=== PATIENT | female | born 1950 | race Two or more races ===

== ENCOUNTER 2024-01-02 17:18 | Emergency (ER) | payer OTHER ==
[~2024-01-02] VITALS: Ht 162.6 cm; Wt 82.0 kg
[2024-01-02 19:04] VITALS: TEMP 97.8; O2SAT 94
[2024-01-02 19:07] VITALS: BP 123/71; PULSE 109; RESP 16
[2024-01-02] MEDS: HYDROmorphone HCL 2 MG/ML VL/or syr IM ONE (19:07)
== END 2024-01-02 20:23 | disposition home or self-care (01) ==
LOC: ER 17:18
DX: S52.612A Displaced fracture of left ulna styloid process, initial encounter for closed fracture (principal); S52.592A Other fractures of lower end of left radius, initial encounter for closed fracture; G89.29 Other chronic pain; W01.0XXA Fall on same level from slipping, tripping and stumbling without subsequent striking against object, initial encounter; Y93.89 Activity, other specified; Y92.89 Other specified places as the place of occurrence of the external cause; Y99.8 Other external cause status
CPT/HCPCS: 29125; 73090; 73110; 96372; 99284; J1171

== ENCOUNTER 2024-01-06 10:36 | Emergency (ER) | payer OTHER ==
[~2024-01-06] VITALS: Ht 165.1 cm; Wt 78.0 kg
[2024-01-06] MEDS ORDERED: IBUP1TAB5 PO (11:47)
[2024-01-06 11:51] VITALS: BP 132/74; PULSE 94; RESP 18; TEMP 98.9; O2SAT 99
== END 2024-01-06 12:08 | disposition home or self-care (01) ==
LOC: ER 10:36
DX: S42.402A Unspecified fracture of lower end of left humerus, initial encounter for closed fracture (principal); Z79.899 Other long term (current) drug therapy; X58.XXXA Exposure to other specified factors, initial encounter; Y93.89 Activity, other specified; Y92.89 Other specified places as the place of occurrence of the external cause; Y99.8 Other external cause status
CPT/HCPCS: 29125; 73110

== ENCOUNTER → 2024-01-19 | Outpatient (CLI) | payer OTHER ==
[~2024-01-19] MED LIST: IBUP1TAB5 PO
[2024-01-19 12:07] LABS: Albumin 4.3 g/dL (3.2-4.8); Alkaline Phosphatase 92 U/L (46-116); Anion Gap 7 (5-15); Aspartate Aminotransferase 13 U/L (13-40); BUN/Creatinine Ratio 9.4 (10.0-20.0); Blood Urea Nitrogen 6 mg/dL (9-23); Calcium 9.6 mg/dL (8.7-10.4); Carbon Dioxide 30 mmol/L (20-31); Chloride 106 mmol/L (98-107); Glucose 101 mg/dL (74-106); LDL Cholesterol 55 mg/dL (< 100); Potassium 3.6 mmol/L (3.5-5.1); Sodium 143 mmol/L (136-145); Triglycerides 67 mg/dL (< 150)
[2024-01-19 12:08] LABS: Bilirubin, Total 1.2 mg/dL (0.2-1.0); Cholesterol 125 mg/dL (< 200); HDL Cholesterol 55 mg/dL (40-59); Total Protein 6.6 g/dL (5.7-8.2)
[2024-01-19 12:10] LABS: Alanine Aminotransferase < 9 U/L (7-40)
[2024-01-19 12:31] LABS: Basophils # (auto) 0 10 ^3/uL (0-0.2); Basophils % (auto) 0.4 % (0.0-2.0); Eosinophils # (auto) 0.2 10 ^3/uL (0-0.8); Eosinophils % (auto) 2.9 % (0.0-7.0); Hematocrit 37.1 % (36.0-46.0); Hemoglobin 12.4 g/dL (12.2-16.2); Lymphocytes # (auto) 1.2 10 ^3/uL (0.4-5.4); Lymphocytes % (auto) 19.3 % (10.0-50.0); Mean Corpuscular Hemoglobin 27.6 pg (28.0-32.0); Mean Corpuscular Hgb Conc. 33.4 g/dL (32.0-36.0); Mean Corpuscular Volume 82.6 fL (80.0-100.0); Monocytes # (auto) 0.5 10 ^3/uL (0-1.3); Monocytes % (auto) 8.4 % (0.0-12.0); Neutrophils # (auto) 4.4 10 ^3/uL (1.6-8.6); Platelet Count (auto) 322 10^3/uL (140-450); Red Blood Cells 4.49 10^6/uL (4.0-5.20); Red Cell Distribution Width 16.3 % (11.8-14.3); White Blood Cell 6.4 10^3/uL (4.4-10.8)
== END | disposition home or self-care (01) ==
LOC: LAB 10:52
PROVIDERS: ATTEND Nurse Practitioner Family
DX: I10 Essential (primary) hypertension (principal); Z00.01 Encounter for general adult medical examination with abnormal findings
CPT/HCPCS: 36415; 80053; 80061; 84443; 85025

== ENCOUNTER 2025-03-13 16:11 | Emergency (ER) | payer OTHER ==
[~2025-03-13] VITALS: Ht 165.1 cm; Wt 78.5 kg
[2025-03-13] MEDS: ACETAMINOPHEN 500 MG TAB or CAP PO ONE (16:45)
[2025-03-13] MEDS: FAMOTIDINE (10MG/ML) 2ML VL IV ONE (16:45)
[2025-03-13] MEDS: ONDANSETRON HCL 4 MG/2 ML VIAL IV ONE (16:45)
--- NOTE | 2025-03-13 16:46 | ED.PDOC ---
Hermelinda. trauma (HPI) HPI Comments This is a 74 year old female presenting to the ED with chief complaint of fall injuries. Patient reports that she had been tripped over by her dog running past her at home a few days ago, causing her to fall onto the ground face first. Patient relays that she is now experiencing bruising to her face, nose, chest, and left hand where she tried to break her fall. Patient states she is also experiencing associated nausea, vomiting, and headaches since then fall. Patient denies any LOC, numbness, weakness, tingling, chest pain, SOB, or dizziness. Chief Complaint: Fall Injury Time Seen by MD: 16:44 Primary Care Provider: SMILEY Joseph notes: Nurses Notes, Medications, Allergies Allergies: Coded Allergies: NO KNOWN ALLERGIES (Unverified , 01/02/24) Home Meds Active Scripts Ibuprofen Micronized (Ibuprofen) 600 Mg Tab, 600 MG PO TIDWMEALS for 10 Days, #30 TAB 0 Refills Prov:PAULO CARLOS NP 01/06/24 Information Source: Patient Mode of Arrival: Ambulatory Severity: Moderate Timing: Days Duration: Since onset Location: Chest, Face, (L) Hand, Nose Mechanism: Fall Associated signs and symtoms: Headache Past Medical History PAST MEDICAL HISTORY: Denies Surgical History: Denies all surgeries [employer] History: No Pertinent [employer]ANT History Family History Family History: Reviewed,noncontributory to illness, No family hx of Cancer, No family hx of DM, No family hx of Heart israel, No family hx of HTN, No family hx ofKidney israel, No family hx of Liver israel, No family hx of Lung israel, No family hx of Stroke Social History Smoker: Non-Smoker Alcohol: Denies ETOH Use Drugs: Denies Drug Use Lives In: Home Constitutional: denies: chills, diaphoresis, fatigue, fever, malaise, sweats, weakness, others EENTM: denies: blurred vision, double vision, ear bleeding, ear discharge, ear drainage, ear pain, ear ringing, eye pain, eye redness, hearing loss, mouth pain, mouth swelling, nasal discharge, nose bleeding, nose congestion, nose pain, photophobia, tearing, throat pain, throat swelling, voice changes, others Respiratory: denies: cough, hemoptysis, orthopnea, SOB at rest, shortness of breath, SOB with excertion, stridor, wheezing, others Cardiovascular: denies: chest pain, dizzy spells, diaphoresis, Dyspnea on exertion, edema, irregular heart beat, left arm pain, lightheadedness, palpitations, PND, syncope, others Gastrointestinal: reports: nausea, vomiting; denies: abdomen distended, abdominal pain, blood streaked bowels, constipated, diarrhea, dysphagia, difficulty swallowing, hematemesis, melena, poor appetite, poor fluid intake, rectal bleeding, rectal pain, others Genitourinary: denies: abnormal vagina bleeding, burning, dyspareunia, dysuria, flank pain, frequency, hematuria, incontinence, pain, , vagina discharge, urgency, others Neurological: reports: headache; denies: dizziness, fainting, left sided numbness, left sided weakness, numbness, paresthesia, pre-existing deficit, right sided numbness, right sided weakness, seizure, speech problems, tingling, tremors, weakness, others Musculoskeletal: denies: back pain, gout, joint pain, joint swelling, muscle pain, muscle stiffness, neck pain, others Integumetry: reports: bruises; denies: change in color, change in hair/nails, dryness, laceration, lesions, lumps, rash, wounds, others Allergic/Immunocompromised: denies: Difficulty Healing, Frequent Infections, Hives, Itching, others Hematologic/Lymphatic: denies: anemia, blood clots, easy bleeding, easy bruising, swollen glands, others Endocrine: denies: excessive hunger, excessive sweating, excessive thirst, excessive urination, flushing, intolerance to cold, intolerance to heat, unexplained weight gain, unexplained weight loss, others Psychiatric: denies: anxiety, bipolar disorder, depression, hopeless, panic disorder, schizophrenia, sleepless, suicidal, others All Other Systems: Reviewed and Negative Physical Exam General Appearance: No Apparent Distress, Normal HEENT: Normal ENT Inspection, Pharynx Normal, TMs Normal Neck: Full Range of Motion, Non-Tender, Normal, Normal Inspection Respiratory: Chest Non-Tender, Lungs Clear, No Accessory Muscle Use, No Respiratory Distress, Normal Breath Sounds Cardiovascular: No Edema, No JVD, No Murmur, No Gallop, Normal Peripheral Pulses, Regular Rate/Rhythm Breast Exam: Deferred Gastrointestinal: No Organomegaly, Non Tender, No Pulsatile Mass, Normal Bowel Sounds, Soft Genitalia: Deferred Pelvic: Deferred Rectal: Deferred Extremities: No calf tenderness, Normal capillary refill, Normal inspection, Normal range of motion, Non-tender, No pedal edema Musculoskeletal : Apperance: Normal Neurologic: Alert, paper box maker II-XII nml as Tested, No Motor Deficits, Normal Affect, Normal Mood, No Sensory Deficits Cerebellar Function: Normal Reflexes: Normal Skin: Bruises (Chin bruising, left dorsal hand bruising, left breast bruising, bilateral eyelid bruising), Dry, Normal Color, Warm Lymphatic: No Adenopathy Was a procedure done? Was a procedure done?: No EKG EKG : Pulse Rate (adult): 116 Comments Intraventricular conduction delay, prolonged QTC (480), TWI in III, V6 Differential Diagnosis Multiple Trauma: Closed Head Injury, Fractures, Contusion, Hematoma X-Ray, Labs, Meds, VS Vital Signs Date Time Temp Pulse Resp B/P (MAP) Pulse Ox O2 Delivery O2 Flow Rate FiO2 03/13/25 18:02 97.7 111 16 122/91 (101) 95 97.7 03/13/25 16:45 97.7 03/13/25 16:30 116 03/13/25 16:16 98.0 111 18 123/95 98 98.0 Lab Test 03/13/25 17:09 Range/Units White Blood Count 8.0 4.4-10.8 10^3/uL Red Blood Count 4.79 4.0-5.20 10^6/uL Hemoglobin 13.2 12.2-16.2 g/dL Hematocrit 38.8 36.0-46.0 % Mean Corpuscular Volume 81.0 80.0-100.0 fL Mean Corpuscular Hemoglobin 27.6 L 28.0-32.0 pg Mean Corpuscular Hemoglobin Concent 34.1 32.0-36.0 g/dL Red Cell Distribution Width 14.3 11.8-14.3 % Platelet Count 355 140-450 10^3/uL Mean Platelet Volume 7.4 6.9-10.8 fL Neutrophils (%) (Auto) 77.9 37.0-80.0 % Lymphocytes (%) (Auto) 12.7 10.0-50.0 % Monocytes (%) (Auto) 9.0 0.0-12.0 % Eosinophils (%) (Auto) 0.0 0.0-7.0 % Basophils (%) (Auto) 0.4 0.0-2.0 % Neutrophils # (Auto) 6.2 1.6-8.6 10 ^3/uL Lymphocytes # (Auto) 1.0 0.4-5.4 10 ^3/uL Monocytes # (Auto) 0.7 0-1.3 10 ^3/uL Eosinophils # (Auto) 0 0-0.8 10 ^3/uL Basophils # (Auto) 0 0-0.2 10 ^3/uL Nucleated Red Blood Cells 0.1 % Sodium Level 137 136-145 mmol/L Potassium Level 4.0 3.5-5.1 mmol/L Chloride Level 99 98-107 mmol/L Carbon Dioxide Level 28 20-31 mmol/L Anion Gap 10 5-15 Blood Urea Nitrogen 7 L 9-23 mg/dL Creatinine 0.78 0.550-1.02 mg/dL Glomerular Filtration Rate Calc 80 >90 mL/min BUN/Creatinine Ratio 9.0 L 10.0-20.0 Serum Glucose 127 H 74-106 mg/dL Calcium Level 10.4 8.7-10.4 mg/dL Total Bilirubin 0.7 0.2-1.0 mg/dL Aspartate Amino Transferase (AST) 15 13-40 U/L Alanine Aminotransferase (ALT) 9 7-40 U/L Alkaline Phosphatase 98 46-116 U/L Total Protein 7.5 5.7-8.2 g/dL Albumin 4.8 3.2-4.8 g/dL Lipase 27 12-53 U/L Current Medications Medications (Trade) Dose Ordered Sig/Ayse Route Start Time Stop Time Status Last Admin Sodium Chloride 1,000 ml @ 1,000 mls/hr Q1H ONCE IV 03/13/25 16:45 03/13/25 17:44 DC 03/13/25 18:14 Famotidine (Pepcid Injection) 20 mg ONCE ONCE IV 03/13/25 16:45 03/13/25 16:47 DC 03/13/25 16:45 Ondansetron HCl (Zofran) 4 mg ONCE ONCE IV 03/13/25 16:45 03/13/25 16:47 DC 03/13/25 16:45 Acetaminophen (Tylenol Tablet Or Capsule) 1,000 mg ONCE ONCE PO 03/13/25 16:45 03/13/25 16:47 DC 03/13/25 16:45 Time of 1ST Reevaluation: 17:43 Reevaluation 1ST: Unchanged Patient Education/Counseling: Diagnosis, Treatment Family Education/Counseling: No Family Present Departure 1 Departure Time of Disposition: 20:00 (74-year-old female presenting for evaluation of headache, nausea, vomiting, bruising throughout her face, left hand, left breast for recent fall. Patient reporting frequent falls being you to being unsteady on her feet. Most recent fall was a few days ago. Patient with old bruising along the chin area and having associated headache. CT of the face was performed which is negative for any facial fractures. Given the patient's age with persistent headache, nausea, vomiting consider possible acute intracranial hemorrhage. CT of the head was performed which is negative for any acute intracranial hemorrhage. Patient with no neck pain from her fall, does not require any advanced imaging of the neck. Patient with the left hand bruising, however, has what appears to be old fracture deformity. X-ray of the left hand was performed which shows some abnormalities, however, no mentioned of acute versus chronic. My review of the x-rays appear more likely chronic fracture deformities. However, given recent fall with new bruising a CT of the upper extremity was performed which shows that these are all old deformities with no evidence of any acute fracture from recent fall. X-ray of the chest also with no evidence of any rib fractures. Patient was treated for headache and nausea and vomiting with 1 L normal saline IV fluid bolus, given oral Tylenol, Zofran, Pepcid. Feeling improved after interventions. CBC with no evidence of critical leukocytosis or significant anemia. Metabolic panel with no evidence of any acute electrolyte abnormalities. Given normal negative imaging today the patient seems stable for discharge further outpatient workup and management. Advised to take Tylenol, ibuprofen as needed for headache. Will also be given a prescription for Zofran to take as needed.) Impression: Primary Impression: Headache Additional Impressions: Nausea & vomiting Post concussion syndrome Left hand pain Traumatic ecchymosis of left hand Traumatic ecchymosis of left female breast Ground-level fall Disposition: HOME / SELF CARE / HOMELESS Condition: Stable Additional Instructions: A CT of your face was performed which shows no evidence of facial fractures. A CT of the head was performed which shows no evidence of any acute intracranial hemorrhage. An x-ray of the chest shows no evidence of any obvious rib fractures. X-ray and CT imaging of your left upper extremity shows no evidence of any acute fractures from your recent fall. You are likely having postconcussion syndrome type symptoms. Take Tylenol, ibuprofen as needed for headache. You were also given a prescription for Zofran to take as needed for nausea and vomiting. e-Prescriptions Ondansetron Odt 4MG Tab (ZOFRAN PO) 4 Mg Tb 4 MG PO Q6HPRN PRN for 3 Days, #12 TAB ODT TAB-DISSOLVE IN MOUTH, THEN SWALLOW Prov: LOUIS FALCON MD 03/13/25 Ibuprofen Micronized (Ibuprofen) 600 Mg Tab 600 MG PO TID for 10 Days, #30 TAB Prov: LOUIS FALCON MD 03/13/25 Acetaminophen (Acetaminophen Extra Stren) 500 Mg Tab 1000 MG PO TID for 10 Days, #60 TAB Prov: LOUIS FALCON MD 03/13/25 Discharged With: Self Critical Care Note Critical Care Time?: No Stability Stability form required: No Heart Score Heart Score: Heart Score Response (Comments) Value History N/A 0 EKG N/A 0 Age N/A 0 Risk Factors N/A 0 Troponin N/A 0 Total 0 I personally scribed for LOUIS FALCON MD ([email or web address]) on 03/13/25 at 16:46. Electronically submitted by Caio Avalos ([email or web address]). LOUIS FALCON MD Mar 13, 2025 16:46
--- NOTE | 2025-03-13 17:23 | DVH ---
EXAM: CT HEAD WITHOUT CONTRAST INDICATION: fall/headache/dizziness TECHNIQUE: CT of the head without intravenous contrast. Radiation Dose Information: CT Dose: CTDI volume is 52.65 mGy. Dose-length product is 842.42 mGy*cm The dose indicators for CT are the volume Computed Tomography (CT) Dose Index (CTDIvol) and the Dose Length Product (DLP), and are measured in units of mGy and mGy-cm, respectively. These indicators are not patient dose, but values generated from the CT scanner acquisition factors. The report includes radiation exposure data for exposures received during this examination. COMPARISON: None FINDINGS: There is no evidence of acute intracranial hemorrhage, extra-axial collection, mass effect, midline shift, herniation or hydrocephalus. The ventricles, sulci and cisterns are age appropriate. The glover-white differentiation is intact. Patchy periventricular and subcortical white matter hypoattenuation is nonspecific but may be related to small vessel ischemic disease. The visualized paranasal sinuses and mastoid air cells are clear. The surrounding soft tissues and osseous structures are unremarkable. IMPRESSION: No acute intracranial abnormality.
--- NOTE | 2025-03-13 17:24 | DVH ---
HISTORY: jaw bruising, nasal pain from fall TECHNIQUE: Nonenhanced axial images through the facial bones with coronal and sagittal MPR. Radiation Dose Information: CT Dose: CTDI volume is 66.33 mGy. Dose-length product is 1250.92 mGy*cm COMPARISON: CT HEAD WITHOUT CONTRAST on DOS: 03/13/25 FINDINGS: Mandible: Unremarkable Maxilla: Unremarkable Zygomatic arches: Unremarkable Nasal bone: Unremarkable Orbits: Unremarkable Sinuses: Clear Facial swelling: None IMPRESSION: No acute facial fractures. Radiation optimization: All CT scans at this facility use at least one of these dose optimization techniques: automated exposure control mA and/or kV adjustment per patient size (includes targeted exams where dose is matched to clinical indication) or iterative reconstruction.
[2025-03-13 17:28] LABS: Hematocrit 38.8 % (36.0-46.0); Hemoglobin 13.2 g/dL (12.2-16.2); Mean Corpuscular Hemoglobin 27.6 pg (28.0-32.0); Mean Corpuscular Volume 81.0 fL (80.0-100.0); Nucleated Red Blood Cells % 0.1 %
--- NOTE | 2025-03-13 17:31 | DVH ---
XY L HAND 3V XRAY COMPARISON: XY L WRIST 3+ VIEW XRAY on DOS: 02/01/24, XY L FOREARM XRAY on DOS: 01/18/24 INDICATION: left hand bruising from recent fall FINDINGS/IMPRESSION: Comminuted fracture of the distal radius with volar angulation. Probable dislocation of the distal radioulnar joint with ulna seen dorsal and superior to the carpal bones.
--- NOTE | 2025-03-13 17:41 | DVH ---
CHEST RADIOGRAPH INDICATION: chest wall bruising from fall TECHNIQUE: Single frontal view of the chest was obtained. COMPARISON: None. FINDINGS: No focal consolidation. No significant pleural effusion. No pneumothorax. Stable cardiomediastinal silhouette. IMPRESSION: No acute pulmonary process.
[2025-03-13 17:44] LABS: Alkaline Phosphatase 98 U/L (46-116); Anion Gap 10 (5-15); BUN/Creatinine Ratio 9.0 (10.0-20.0); Calcium 10.4 mg/dL (8.7-10.4); Carbon Dioxide 28 mmol/L (20-31); Chloride 99 mmol/L (98-107); Lipase 27 U/L (12-53); Potassium 4.0 mmol/L (3.5-5.1); Sodium 137 mmol/L (136-145); Total Protein 7.5 g/dL (5.7-8.2)
[2025-03-13 17:45] LABS: Bilirubin, Total 0.7 mg/dL (0.2-1.0)
[2025-03-13 18:03] LABS: Alanine Aminotransferase 9 U/L (7-40); Albumin 4.8 g/dL (3.2-4.8); Blood Urea Nitrogen 7 mg/dL (9-23); Glucose 127 mg/dL (74-106)
[2025-03-13] MEDS: SODIUM CHLORIDE 0.9% 1,000 ML IV ONE (18:14)
--- NOTE | 2025-03-13 20:23 | DVH ---
EXAMINATION: CT UPPER EXTREMITY WO CONTRAST INDICATION: eval acute vs chronic wrist fracture/dislocation COMPARISON: XY L HAND 3V XRAY on DOS: 03/13/25, XY L WRIST 3+ VIEW XRAY on DOS: 02/01/24, XY L WRIST 3+ VIEW XRAY on DOS: 01/18/24, XY L FOREARM XRAY on DOS: 01/18/24, XY L WRIST 3+ VIEW XRAY on DOS: 01/06/24 TECHNIQUE: CT of the rightleft humerus was performed without contrast. Volume transverse images were obtained reconstructed in multiple planes using bone and soft tissue algorithms. CONTRAST: None. Radiation Dose Information: CTDI volume is 51.07 mGy. Dose-length product is 2151.15 mGy*cm FINDINGS: Chronic appearing displaced distal radial fracture with volar displacement and foreshortening. Solid-appearing bridging callus between the fracture fragments. Bones are demineralized. No definite acute fracture is seen. IMPRESSION: Chronic/healed fracture deformity of the distal radius. All CT scans at this medical facility are performed using dose modulation techniques as appropriate to a performed exam including the following: Automated exposure control was utilized; adjustment of the MA and/or KV according to patient size; and use of iterative reconstruction technique.
[2025-03-13] MEDS ORDERED: IBUP1TAB5 PO (21:41)
[2025-03-13] MEDS ORDERED: ACET-6 PO (21:41)
[2025-03-13] MEDS ORDERED: ZOFR4T PO (21:41)
[2025-03-13 23:04] VITALS: BP 140/93; PULSE 110; RESP 16; TEMP 98.1; O2SAT 95
--- NOTE | 2025-03-14 07:00 | ECG ---
[facility] Test Date: 2025-03-13 Test Time: 16:30:59 Pat Name: AMELIA OCHOA Department: Room: Gender: F Ironworker Apprentice: JONI : 1950 Requested By: LOUIS FALCON Order Number: [id number] Reading MD: Keith Yoo Measurements Intervals [place] Rate: 113 P: 39 DC: 162 QRS: 233 QRSD: 134 T: -2 QT: 347 QTc: 476 Interpretive Statements Sinus tachycardia Probable left atrial enlargement Nonspecific intraventricular conduction delay Anterior infarct, acute (LAD) Lateral leads are also involved Electronically Signed On 03-16-2025 17:07:30 PST by Keith Yoo Please click the below link to view image of tracing.
== END 2025-03-13 23:26 | disposition home or self-care (01) ==
LOC: ER 16:11
DX: S60.222A Contusion of left hand, initial encounter (principal); S20.02XA Contusion of left breast, initial encounter; F07.81 Postconcussional syndrome; R51.9 Headache, unspecified; R11.2 Nausea with vomiting, unspecified; M79.642 Pain in left hand; Z79.899 Other long term (current) drug therapy; W18.30XA Fall on same level, unspecified, initial encounter; Y93.89 Activity, other specified; Y92.89 Other specified places as the place of occurrence of the external cause; Y99.8 Other external cause status
CPT/HCPCS: 36415; 70450; 70486; 71045; 73130; 73200; 80053; 83690; 85025; 93005; 96361; 96374; 96375; 99285; J2405; J3490; J7030